=== PATIENT | female | born 1935 | race Caucasian/White ===

== ENCOUNTER → 2016-10-29 | Outpatient (CLI) | payer MEDICARE, OTHER ==
[2016-10-29 16:40] LABS: CHLORIDE,CL 103 mmol/L (98-110); SODIUM,NA 137 mmol/L (136-146)
== END ==
LOC: MW.CHNEURO 15:34
PROVIDERS: ATTEND Psychiatry & Neurology Neuromuscular Medicine
DX: G95.9 Disease of spinal cord, unspecified (principal)
CPT/HCPCS: 36415; 80053; 82525; 82607; 85025; 99204

== ENCOUNTER → 2016-10-31 | Outpatient (CLI) | payer MEDICARE, OTHER ==
[~2016-10-31] MED LIST: Gadobutrol 7.5 mMOL/7.5 ML SDV IVPUSH STA
--- NOTE | 2016-11-01 09:47 | MR ---
EXAMINATION: MRI cervical and thoracic spine with and without contrast HISTORY: Disease of the spinal cord COMPARISON: CT dated 04/27/2016 TECHNIQUE: Multiplanar and multisequence images obtained of the cervical and thoracic spine before a nd following the administration of 5 mL of Gadavist. FINDINGS: Cervical spine: There is mild reversal of the normal cervical lordosis centered at C4-C5. No suspic ious bone marrow signal changes identified. The cervical spinal cord signal is normal. The visualize d intracranial compartments appear normal. C2-C3: Unremarkable. C3-C4: Tiny diffuse pseudobulge secondary to minimal anterolisthesis of significant spinal canal brook nosis. Moderate to severe right and mild left neural foraminal stenosis. C4-C5: Moderate diffuse disc bulge with mild spinal canal stenosis. Moderate bilateral neural forami nal stenosis. C5-C6: Moderate diffuse disc bulge with moderate spinal canal stenosis. Moderate to severe right and moderate left neural foraminal stenosis. C6-C7: Small diffuse disc bulge with mild spinal canal stenosis. Moderate bilateral neural foraminal stenosis. C7-T1: Unremarkable. Thoracic spine: There is mild thoracic kyphosis. There is a moderate compression deformity of the T8 vertebral body and the T12 vertebral body. No significant underlying edema is noted suggesting a ch ronic nature. Endplate signal changes are noted at T6-T7. No suspicious bone marrow signal identifie d. There is no abnormal enhancement. The thoracic spinal cord signal appears normal. The paravertebr al soft tissues appear normal. T1-T8: Unremarkable. T8-T9: Tiny diffuse disc bulge without significant spinal canal or neural foraminal stenosis. T9-T10: Tiny diffuse disc bulge without significant spinal canal or neural foraminal stenosis. T10-T11: Unremarkable. T11-T12: Mild spinal canal stenosis secondary to retropulsion from the prior disc compression. No si gnificant neural foraminal stenosis. T12-L1: Moderate diffuse disc bulge with [id number] spinal canal stenosis and mild mild right neural foraminal stenosis. IMPRESSION: 1. Multilevel degenerative changes and disc disease noted within the cervical and thoracic spine wit h individual details above. 2. Moderate chronic wedge compression deformities at T8 and T12. 3. No abnormal bone marrow or spinal cord signal.
== END ==
LOC: MW.MRI 08:10
PROVIDERS: ATTEND Psychiatry & Neurology Neuromuscular Medicine
DX: G95.9 Disease of spinal cord, unspecified (principal); M50.30 Other cervical disc degeneration, unspecified cervical region; M43.8X4 Other specified deforming dorsopathies, thoracic region
CPT/HCPCS: 72156; 72157; A9585

== ENCOUNTER → 2016-11-07 | Outpatient (CLI) | payer MEDICARE, OTHER | LOC: MW.CHNEURO 11:17 | PROVIDERS: ATTEND Psychiatry & Neurology Neuromuscular Medicine | DX: G12.21 Amyotrophic lateral sclerosis (principal) | CPT/HCPCS: 36415; 70553; 82164; 83519; 83520; 85652; 86038; 86256; 86618; 99214 ==

== ENCOUNTER 2016-11-09 13:21 | Observation (INO) | payer MEDICARE, OTHER ==
--- NOTE | 2016-11-09 13:42 | EDM.PDOC ---
ED HPI Trauma - General Chief Complaint: Lower Extremity Injury/Pain Stated Complaint: PAIN FROM FALL Time Seen by Provider: 11/09/16 13:41 Source: Reports: Patient History Limitations: Reports: No limitations - History of Present Illness INITIAL COMMENTS - FREE TEXT/NARRATIVE: History of present illness: [81-year-old female with known gait issues secondary to chronic underlying neurological problem. Patient might possibly have ALS but this is indeterminate it is still being worked up but it is known to have caused a gait issue with a bit of foot drag subsequently causing patient to trip and fall yesterday. Patient has had increasing pain in left groin with inability to fully move the leg as well as before as well as not tolerating any weightbearing without some level of exquisite pain. Patient acknowledges she has limited all activity to going to the bathroom and getting up for the day and going to bed.] Review of systems: As per history of present illness and below otherwise all systems reviewed and negative. Past medical history: As per history of present illness and as reviewed below otherwise noncontributory. Surgical history: As per history of present illness and as reviewed below otherwise noncontributory. Social history: No reported history of drug or alcohol abuse. Family history: As per history of present illness and as reviewed below otherwise noncontributory. Physical exam: HEENT: Atraumatic, normocephalic, pupils reactive, negative for conjunctival pallor or scleral icterus, mucous membranes moist, throat clear, neck supple, nontender, trachea midline. Lungs: Clear to auscultation, breath sounds equal bilaterally, chest nontender. Heart: S1S2, regular, negative for clicks, rubs, or JVD. Abdomen: Soft, nondistended, nontender. Negative for masses or hepatosplenomegaly. Negative for costovertebral tenderness. Pelvis: Stable nontender. Genitourinary: Deferred. Rectal: Deferred. Extremities: Atraumatic, negative for cords or calf pain. Neurovascular unremarkable. Neuro: Awake, alert, oriented. Cranial nerves II through XII unremarkable. Cerebellum unremarkable. Motor and sensory unremarkable throughout. Exam nonfocal. X-rays show a left ischial ramus fracture Diagnostics: [X-ray of right hip pelvis and sacrum] Therapeutics: [IV fluids were] Impression: [Left ischial ramus fracture] Plan: [Admit for pain management and physical therapy to Dr. Rankin Definitive disposition and diagnosis as appropriate pending reevaluation and review of above. Allergies/ADRs: Allergies Penicillins Allergy (Verified 11/09/16 13:26) Hives Home Medications: Ambulatory Orders Lisinopril [Lisinopril] 1 tab PO DAILY 04/27/16 [Confirmed 11/09/16] clonazePAM [Clonazepam] 1 tab PO DAILY 04/27/16 [Confirmed 11/09/16] rOPINIRole [Requip] 1 mg PO 11/09/16 Past Medical History HEENT History: Reports: Allergic rhinitis Cardiovascular History: Reports: Hypertension Respiratory History: Reports: None Gastrointestinal History: Reports: None Genitourinary History: Reports: None [employer] History: Reports: Musculoskeletal History: Reports: Arthritis, Osteoporosis Neurological History: Reports: None Psychiatric History: Reports: None Endocrine/Metabolic History: Reports: None Hematologic History: Reports: None Immunologic History: Reports: None Oncologic (Cancer) History: Reports: None Dermatologic History: Reports: None - Infectious Disease History Infectious Disease History: Reports: Chicken pox, Measles, Mumps - Past Surgical History Head Surgeries/Procedures: Reports: None HEENT Surgical History: Reports: Cataract surgery Musculoskeletal Surgical History: Reports: None Social & Family History - Family History Family Medical History: Noncontributory - Tobacco Use Smoking Status *Q: Never Smoker Second Hand Smoke Exposure: No - Caffeine Use Caffeine Use: Reports: Coffee - Recreational Drug Use Recreational Drug Use: No Review of Systems - Review of Systems Review Of Systems: See Below (History of present illness) Trauma Exam - Physical Exam Exam: See Below (See history of present illness) Course - Vital Signs Last Recorded V/S: Last Vital Signs Temp 36.6 C 11/09/16 13:24 Pulse 100 11/09/16 13:24 Resp 16 11/09/16 13:24 BP 170/116 H 11/09/16 13:24 Pulse Ox 96 11/09/16 13:24 - Orders/Labs/Meds Orders: Active Orders 24 hr Category Date Time Status Femur Min 2V Lt [CR] Stat Exams 11/09/16 13:42 Ordered Pelvis 1V or 2V [CR] Stat Exams 11/09/16 13:42 Ordered Sacrum Coccyx Min 2V [CR] Stat Exams 11/09/16 13:42 Ordered Sodium Chloride 0.9% [Normal Saline] 1,000 ml Med 11/09/16 13:58 Ordered IV STAT Medication Orders Sodium Chloride (Normal Saline) 1,000 mls @ 200 mls/hr IV STAT ONE Stop: 11/09/16 18:57 Last Admin: 11/09/16 14:41 Dose: 200 mls/hr Meds: Medications Generic Name Dose Route Start Last Admin Trade Name Freq PRN Reason Stop Dose Admin Sodium Chloride 1,000 mls @ 200 mls/hr 11/09/16 13:58 11/09/16 14:41 Normal Saline IV 11/09/16 18:57 200 mls/hr STAT ONE Administration Discontinued Medications Generic Name Dose Route Start Last Admin Trade Name Freq PRN Reason Stop Dose Admin Ketorolac Tromethamine 30 mg 11/09/16 13:59 11/09/16 14:42 Toradol IVPUSH 11/09/16 14:00 30 mg ONETIME ONE Administration Departure - Departure Time of Disposition: 15:27 Disposition: Admitted As Inpatient 68 Condition: good Clinical Impression: Fracture of pelvis Forms: ED Department Discharge - My Orders Last 24 Hours: My Active Orders 11/09/16 13:42 Femur Min 2V Lt [CR] Stat Pelvis 1V or 2V [CR] Stat Sacrum Coccyx Min 2V [CR] Stat 11/09/16 13:58 Sodium Chloride 0.9% [Normal Saline] 1,000 ml IV STAT - Assessment/Plan Last 24 Hours: My Active Orders 11/09/16 13:42 Femur Min 2V Lt [CR] Stat Pelvis 1V or 2V [CR] Stat Sacrum Coccyx Min 2V [CR] Stat 11/09/16 13:58 Sodium Chloride 0.9% [Normal Saline] 1,000 ml IV STAT
[2016-11-09] MEDS ORDERED: Sodium Chloride 0.9% 1,000 ML IV ONE (13:58)
[2016-11-09] MEDS ORDERED: Ketorolac 30 MG/ML SDV IVPUSH ONE (13:59)
[2016-11-09] MEDS ORDERED: Sodium Chloride 0.9% 10 ML Syringe FLUSH PRN (16:02)
[2016-11-09] MEDS ORDERED: Bisacodyl 5 MG Tab PO PRN (16:02)
[2016-11-09] MEDS ORDERED: Acetaminophen 325 MG Tab PO PRN (16:02)
[2016-11-09] MEDS ORDERED: Ondansetron 4 MG Tab.DIS PO PRN (16:02)
[2016-11-09] MEDS ORDERED: Temazepam 15 MG Cap PO PRN (16:02)
[2016-11-09] MEDS ORDERED: Sodium Chloride 0.9% 2.5 ML Syringe FLUSH PRN (16:02)
[2016-11-09] MEDS ORDERED: rOPINIRole 1 MG Tab PO PRN (16:21)
[2016-11-09] MEDS ORDERED: cloNIDine 0.1 MG Tab PO ONE (16:22)
[2016-11-09] MEDS: Docusate Sodium 100 MG Cap PO SCH ×2 (16:53→20:57)
[2016-11-09] MEDS: Hydrochlorothiazide 12.5 MG Cap PO SCH (16:53)
--- NOTE | 2016-11-09 19:28 | PCM.HP ---
H&P History of Present Illness - General Date of Service: 11/09/16 Admit Problem/Dx: Admission Diagnosis/Problem Admission Diagnosis/Problem Fracture of bone Source of Information: Patient, Family, Provider - History of Present Illness Initial Comments - Free Text/Narative: This woman presents to the emergency department today because of left groin pain. She fell several days ago. She's had increasing pain since that time. She was seen in the emergency department and diagnosed with a left ischial ramus fracture. Observation the hospital for pain control was recommended. She denies current constipation. No current urinary complaints. She denies other significant injury. There was no loss of consciousness at the time of the fall which occurred on Friday. She has been seeing Dr. Bravo for a disorder thought to be a chronic neuromuscular degenerative disorder another MRI is scheduled on Friday. She has been ambulating with a walker at home since the fall. Left Groin Pain Score (Numeric/FACES): 1 - Related Data Allergies/Adverse Reactions: Allergies Allergy/AdvReac Type Severity Reaction Status Date / Time Penicillins Allergy Hives Verified 11/09/16 13:26 Home Medications: Home Meds Lisinopril [Lisinopril] 10 mg PO DAILY 04/27/16 [History] clonazePAM [Clonazepam] 0.5 mg PO DAILY 04/27/16 [History] Acetaminophen/Codeine [Tylenol with Codeine No.3 300MG/30MG] 1 tab PO BEDTIME PRN 11/09/16 [History] rOPINIRole [Requip] 1 mg PO BEDTIME PRN 11/09/16 [History] Past Medical History HEENT History: Reports: Allergic rhinitis Cardiovascular History: Reports: Hypertension. Denies: Afib, CAD, Heart Failure Respiratory History: Reports: None. Denies: Asthma, COPD, Cystic Fibrosis, Interstitial lung disease Gastrointestinal History: Reports: None. Denies: Cirrhosis Genitourinary History: Reports: None. Denies: Chronic renal insuffiency [employer] History: Reports: Musculoskeletal History: Reports: Arthritis, Osteoporosis Neurological History: Reports: Head trauma, Other (see below) (Currently under evaluation by neurology for appears to be some type of chronic neurodegenerative disorder.) Psychiatric History: Reports: None. Denies: Alzheimers disease, Dementia, Hallucinations Endocrine/Metabolic History: Reports: None. Denies: [place]'s disease, Diabetes , type I, Diabetes, type II Hematologic History: Reports: None Immunologic History: Reports: None Oncologic (Cancer) History: Reports: None Dermatologic History: Reports: None - Infectious Disease History Infectious Disease History: Reports: Chicken pox, Measles, Mumps - Past Surgical History Head Surgeries/Procedures: Reports: None HEENT Surgical History: Reports: Cataract surgery GI Surgical History: Reports: Appendectomy Musculoskeletal Surgical History: Reports: None Social & Family History - Family History Family Medical History: Noncontributory - Tobacco Use Smoking Status *Q: Never Smoker Second Hand Smoke Exposure: No - Tobacco Core Measures Tobacco Use/Smoking Within Last 30 Days: No - Caffeine Use Caffeine Use: Reports: Coffee - Alcohol Use Alcohol Use Comment: She denies frequent alcohol use. - Recreational Drug Use Recreational Drug Use: No H&P Review of Systems - Review of Systems: Review Of Systems: See Below General: Reports: weakness. Denies: fever, chills HEENT: Denies: hearing changes Pulmonary: Denies: Shortness of Breath, Wheezing, Cough, Sputum Cardiovascular: Denies: chest pain Gastrointestinal: Denies: Abdominal pain, Black stool, Bloody stool, Diarrhea, Difficulty swallowing, Hematemesis, Hematochezia Genitourinary: Denies: dysuria, frequency, burning, pain, hematuria Psychiatric: Denies: confusion, agitation Review of Systems Comment:: He has chronic weakness. She has gait instability. She has trouble with balance. She's been walking with a walker. Exam - Exam Exam: See Below - Vital Signs Vital Signs: Last Vital Signs Temp 99.2 F 11/09/16 16:02 Pulse 86 11/09/16 16:02 Resp 16 11/09/16 16:02 BP 132/69 11/09/16 18:27 Pulse Ox 98 11/09/16 16:02 Weight: 58.06 kg - Exam General: alert, oriented HEENT: EOMI, Mucosa moist & pink Neck: supple, trachea midline Lungs: Clear to auscultation, Normal respiratory effort Cardiovascular: regular rate, regular rhythm. No: systolic murmur, diastolic murmur Abdomen: soft, other (Patient notes pain and tenderness over the left inguinal region medially.). No: tenderness Rectal (Female) Exam: Deferred Extremities: No: cyanosis, edema Neurological: normal speech Neuro Extensive - Mental Status: normal mood/affect Psychiatric: alert, normal affect, normal mood (Return neuromuscular exam as per Dr. Bravo recent clinic notes.). No: agitated *Q Meaningful Use (ADM) - VTE *Q VTE Criteria *Q: - Stroke *Q Stroke Criteria *Q: - AMI *Q AMI Criteria *Q: - Problem List (1) Muscular weakness SNOMED Code(s): 20406043 ICD Code: M62.81 - MUSCLE WEAKNESS (GENERALIZED) Status: Acute Current Visit: Yes (2) Fracture of pelvis SNOMED Code(s): 37602179 ICD Code: S32.9XXA - FRACTURE OF UNSP PARTS OF LUMBOSACRAL SPINE AND PELVIS, INIT Status: Acute Current Visit: Yes Problem List Initiated/Reviewed/Updated: Yes Orders Last 24hrs: Active Orders 24 hr Category Date Time Status Antiembolic Devices [RC] PER UNIT ROUTINE Care 11/09/16 16:04 Active Communication Order [RC] STAT Care 11/09/16 16:06 Active Oxygen Therapy [RC] PRN Care 11/09/16 16:02 Active VTE/DVT Education [RC] PER UNIT ROUTINE Care 11/09/16 16:02 Active Vital Signs [RC] Q4H Care 11/09/16 16:02 Active PT Evaluation and Treatment [CONS] Routine Cons 11/09/16 16:02 Active Regular Diet [DIET] Diet 11/09/16 Dinner Active BASIC METABOLIC PANEL,BMP [CHEM] AM Lab 11/10/16 05:11 Ordered CBC WITH AUTO DIFF [HEME] AM Lab 11/10/16 05:11 Ordered MAGNESIUM [CHEM] AM Lab 11/10/16 05:11 Ordered Acetaminophen [Tylenol] Med 11/09/16 16:02 Active 650 mg PO Q4H PRN Acetaminophen/HYDROcodone [[place] 325-5 MG] Med 11/09/16 16:07 Active 1 tab PO Q3H PRN Bisacodyl [Dulcolax] Med 11/09/16 16:02 Active 5 mg PO DAILY PRN ClonazePAM [KlonoPIN] Med 11/10/16 09:00 Active 0.5 mg PO DAILY Docusate Sodium [Colace] Med 11/09/16 16:15 Active 100 mg PO BID Hydrochlorothiazide Med 11/09/16 16:30 Active 12.5 mg PO DAILY Lisinopril [Prinivil] Med 11/10/16 09:00 Active 10 mg PO DAILY Ondansetron [Zofran ODT] Med 11/09/16 16:02 Active 4 mg PO Q4H PRN Sodium Chloride 0.9% [Saline Flush] Med 11/09/16 16:02 Active 10 ml FLUSH ASDIRECTED PRN Sodium Chloride 0.9% [Saline Flush] Med 11/09/16 16:02 Active 2.5 ml FLUSH ASDIRECTED PRN Temazepam [Restoril] Med 11/09/16 16:02 Active 15 mg PO BEDTIME PRN rOPINIRole [Requip] Med 11/09/16 16:21 Active 1 mg PO BEDTIME PRN Saline Lock Insert [OM.PC] Routine Oth 11/09/16 16:02 Ordered Sequential Compression Device [OM.PC] Per Unit Routine Oth 11/09/16 16:03 Ordered Resuscitation Status Routine Resus Stat 11/09/16 16:02 Ordered Medication Orders Acetaminophen (Tylenol) 650 mg PO Q4H PRN PRN Reason: Pain (Mild 1-3)/fever Hydrocodone Bitart/Acetaminophen ([place] 325-5 Mg) 1 tab PO Q3H PRN PRN Reason: Pain Bisacodyl (Dulcolax) 5 mg PO DAILY PRN PRN Reason: Constipation Clonazepam (Klonopin) 0.5 mg PO DAILY [facility] Docusate Sodium (Colace) 100 mg PO BID [facility] Last Admin: 11/09/16 16:53 Dose: 100 mg Hydrochlorothiazide (Hydrochlorothiazide) 12.5 mg PO DAILY [facility] Last Admin: 11/09/16 16:53 Dose: 12.5 mg Lisinopril (Prinivil) 10 mg PO DAILY [facility] Ondansetron HCl (Zofran Odt) 4 mg PO Q4H PRN PRN Reason: nausea, able to take PO Ropinirole HCl (Requip) 1 mg PO BEDTIME PRN PRN Reason: Restless Leg Syndrome Sodium Chloride (Saline Flush) 10 ml FLUSH ASDIRECTED PRN PRN Reason: Keep Vein Open Sodium Chloride (Saline Flush) 2.5 ml FLUSH ASDIRECTED PRN PRN Reason: Keep Vein Open Temazepam (Restoril) 15 mg PO BEDTIME PRN PRN Reason: Sleep Assessment/Plan Comment:: Observation. Physical therapy consult. Possible discharge Friday. Will attempt to get better pain control. Stool softeners scheduled. We discussed importance of avoiding constipation.
[2016-11-09] MEDS: Acetaminophen/HYDROcodone 325-5 MG Tab PO PRN (22:19)
[2016-11-10] MEDS: Acetaminophen/HYDROcodone 325-5 MG Tab PO PRN ×5 (03:51→22:31)
[2016-11-10 06:27] LABS: CHLORIDE,CL 107 mmol/L (98-110); SODIUM,NA 137 mmol/L (136-146)
[2016-11-10] MEDS: Hydrochlorothiazide 12.5 MG Cap PO SCH (08:01)
[2016-11-10] MEDS: Docusate Sodium 100 MG Cap PO SCH ×2 (08:01→20:38)
[2016-11-10] MEDS: Lisinopril 10 MG Tab PO SCH (08:02)
[2016-11-10] MEDS ORDERED: ClonazePAM 0.5 MG Tab PO SCH ×2 (09:00→21:00)
--- NOTE | 2016-11-10 11:08 | PCM.PN ---
- General Info Date of Service: 11/10/16 Subjective Update: She is a little breakfast. She was able to ambulate with a walker she had a bowel movement this morning. Functional Status: Reports: pain controlled - Patient Data Vitals - most recent: Last Vital Signs Temp 97.8 F 11/10/16 08:04 Pulse 68 11/10/16 08:04 Resp 18 11/10/16 08:04 BP 152/71 H 11/10/16 08:04 Pulse Ox 96 11/10/16 08:04 Weight - most recent: 58.06 kg I&O - last 24 hours: Intake & Output 11/09/16 11/10/16 11/10/16 22:59 06:59 14:59 Intake Total 1000 1200 Output Total 1950 Balance 1000 -750 Lab Results last 24 hrs: Laboratory Results - last 24 hr 11/10/16 11/10/16 Range/Units 06:00 06:00 WBC 5.28 (4.0-11.0) K/uL RBC 3.39 L (4.30-5.90) M/uL Hgb 11.1 L (12.0-16.0) g/dL Hct 33.1 L (36.0-46.0) % MCV 97.6 (80.0-98.0) fL MCH 32.7 H (27.0-32.0) pg MCHC 33.5 (31.0-37.0) g/dL RDW Std Deviation 47.3 (28.0-62.0) fl RDW Coeff of Hany 13 (11.0-15.0) % Plt Count 194 (150-400) K/uL MPV 10.40 (7.40-12.00) fL Neut % (Auto) 57.9 (48.0-80.0) % Lymph % (Auto) 26.3 (16.0-40.0) % [place] % (Auto) 12.7 (0.0-15.0) % Eos % (Auto) 2.7 (0.0-7.0) % Baso % (Auto) 0.4 (0.0-1.5) % Neut # (Auto) 3.1 (1.4-5.7) K/uL Lymph # (Auto) 1.4 (0.6-2.4) K/uL [place] # (Auto) 0.7 (0.0-0.8) K/uL Eos # (Auto) 0.1 (0.0-0.7) K/uL Baso # (Auto) 0.0 (0.0-0.1) K/uL Nucleated RBC % 0.0 /100WBC Nucleated RBCs # 0 K/uL Sodium 137 (136-146) mmol/L Potassium 3.7 (3.5-5.1) mmol/L Chloride 107 (98-110) mmol/L Carbon Dioxide 23 (21-31) mmol/L BUN 11 (6.0-23.0) mg/dL Creatinine 0.7 (0.6-1.5) mg/dL Est Cr Clr Drug Dosing 46.81 mL/min Estimated GFR (MDRD) > 60.0 ml/min Glucose 88 (60-110) mg/dL Calcium 8.8 (8.8-10.8) mg/dL Magnesium 1.8 (1.5-2.3) mEq/L Med Orders - Current: Current Medications Acetaminophen (Tylenol) 650 mg PO Q4H PRN PRN Reason: Pain (Mild 1-3)/fever Hydrocodone Bitart/Acetaminophen ([place] 325-5 Mg) 1 tab PO Q3H PRN PRN Reason: Pain Last Admin: 11/10/16 08:00 Dose: 1 tab Bisacodyl (Dulcolax) 5 mg PO DAILY PRN PRN Reason: Constipation Clonazepam (Klonopin) 0.5 mg PO BEDTIME [facility] Docusate Sodium (Colace) 100 mg PO BID [facility] Last Admin: 11/10/16 08:01 Dose: 100 mg Hydrochlorothiazide (Hydrochlorothiazide) 12.5 mg PO DAILY [facility] Last Admin: 11/10/16 08:01 Dose: 12.5 mg Lisinopril (Prinivil) 10 mg PO DAILY [facility] Last Admin: 11/10/16 08:02 Dose: 10 mg Ondansetron HCl (Zofran Odt) 4 mg PO Q4H PRN PRN Reason: nausea, able to take PO Ropinirole HCl (Requip) 1 mg PO BEDTIME PRN PRN Reason: Restless Leg Syndrome Last Admin: 11/09/16 22:19 Dose: 1 mg Sodium Chloride (Saline Flush) 10 ml FLUSH ASDIRECTED PRN PRN Reason: Keep Vein Open Sodium Chloride (Saline Flush) 2.5 ml FLUSH ASDIRECTED PRN PRN Reason: Keep Vein Open Temazepam (Restoril) 15 mg PO BEDTIME PRN PRN Reason: Sleep Discontinued Medications Clonazepam (Klonopin) 0.5 mg PO DAILY [facility] Last Admin: 11/10/16 08:02 Dose: 0.5 mg Clonidine HCl (Catapres) 0.2 mg PO ONETIME ONE Stop: 11/09/16 16:23 Last Admin: 11/09/16 16:54 Dose: 0.2 mg Sodium Chloride (Normal Saline) 1,000 mls @ 200 mls/hr IV STAT ONE Stop: 11/09/16 18:57 Last Admin: 11/09/16 14:41 Dose: 200 mls/hr Ketorolac Tromethamine (Toradol) 30 mg IVPUSH ONETIME ONE Stop: 11/09/16 14:00 Last Admin: 11/09/16 14:42 Dose: 30 mg - Exam General: alert, oriented, cooperative Neck: supple, trachea midline Lungs: Clear to auscultation, Normal respiratory effort Cardiovascular: Regular Rate, Regular Rhythm Abdomen: soft, no tenderness Psy/Mental Status: alert, normal affect - Problem List & Annotations (1) Muscular weakness SNOMED Code(s): 47376546 Code(s): M62.81 - MUSCLE WEAKNESS (GENERALIZED) Status: Acute Current Visit: Yes (2) Fracture of pelvis SNOMED Code(s): 94753185 Code(s): S32.9XXA - FRACTURE OF UNSP PARTS OF LUMBOSACRAL SPINE AND PELVIS, INIT Status: Acute Current Visit: Yes - Problem List Review Problem List Initiated/Reviewed/Updated: Yes - My Orders Last 24 Hours: My Active Orders 11/09/16 16:02 Oxygen Therapy [RC] PRN Vital Signs [RC] Q4H PT Evaluation and Treatment [CONS] Routine Acetaminophen [Tylenol] 650 mg PO Q4H PRN Bisacodyl [Dulcolax] 5 mg PO DAILY PRN Ondansetron [Zofran ODT] 4 mg PO Q4H PRN Sodium Chloride 0.9% [Saline Flush] 10 ml FLUSH ASDIRECTED PRN Sodium Chloride 0.9% [Saline Flush] 2.5 ml FLUSH ASDIRECTED PRN Temazepam [Restoril] 15 mg PO BEDTIME PRN Saline Lock Insert [OM.PC] Routine Resuscitation Status Routine 11/09/16 16:03 Sequential Compression Device [OM.PC] Per Unit Routine 11/09/16 16:04 Antiembolic Devices [RC] PER UNIT ROUTINE 11/09/16 16:06 Communication Order [RC] STAT 11/09/16 16:07 Acetaminophen/HYDROcodone [[place] 325-5 MG] 1 tab PO Q3H PRN 11/09/16 16:15 Docusate Sodium [Colace] 100 mg PO BID 11/09/16 16:21 rOPINIRole [Requip] 1 mg PO BEDTIME PRN 11/09/16 16:30 Hydrochlorothiazide 12.5 mg PO DAILY 11/09/16 Dinner Regular Diet [DIET] 11/10/16 09:00 Lisinopril [Prinivil] 10 mg PO DAILY 11/10/16 21:00 ClonazePAM [KlonoPIN] 0.5 mg PO BEDTIME - Plan Plan:: Observation. Physical therapy consult. Possible discharge Friday. Will attempt to get better pain control. Stool softeners scheduled. We discussed importance of avoiding constipation.
[2016-11-10] MEDS: Ketorolac 30 MG/ML SDV IVPUSH PRN (18:21)
[2016-11-11] MEDS: Ketorolac 30 MG/ML SDV IVPUSH PRN (06:41)
[2016-11-11] MEDS: Lisinopril 10 MG Tab PO SCH (08:59)
[2016-11-11] MEDS: Hydrochlorothiazide 12.5 MG Cap PO SCH (08:59)
[2016-11-11] MEDS: Docusate Sodium 100 MG Cap PO SCH (08:59)
--- NOTE | 2016-11-11 10:15 | CR ---
EXAM DATE: 11/09/16 PATIENT'S AGE: 81 Patient: MARIA FERNANDA MARSHALL Facility: [place], [place] Site . Site : 1935 Study: XRay Pelvis [id number]/22/2017 2:27:53 PM Ordering Physician: Doctor Mc Final Report: HISTORY: Pain after falling injury. Findings: Single AP view of the pelvis is provided. There is an apparent nondisplaced or minimally displaced fracture of the left ischial ramus. There is a possible superior ramus fracture as well but this is not definite. There is sclerosis seen to the right of the symphysis pubis possibly related to arthritic change or old healed injury. There is no evidence for fracture elsewhere. No proximal femoral fracture is noted. Mild osteoarthritic change of both hip joints is noted. Impression: Nondisplaced or minimally displaced left ischial ramus fracture. Dictated by Rubens Tineo MD @ Nov 09 2016 2:49PM (Electronic Signature) Report Signed by Proxy and Original Signed Document filed in the Medical Record. [facility]
--- NOTE | 2016-11-11 10:16 | CR ---
EXAM DATE: 11/09/16 PATIENT'S AGE: 81 Patient: MARIA FERNANDA MARSHALL Facility: [place], [place] Site . Site : 1935 Study: XRay Spine [id number] sac/coccyx-11/09/2016 2:29:02 PM Ordering Physician: Doctor Mc Final Report: HISTORY: Pain after injury. Findings: Four views of the sacral region or provided. Again noted is a nondisplaced or minimally displaced fracture of the left ischial ramus. No additional definite acute fracture is identified. Sclerosis is present to the right of the symphysis pubis which could be related to arthritic change or old healed injury. The sacroiliac joints are unremarkable. Multiple phleboliths are noted. Dictated by Rubens Tineo MD @ Nov 09 2016 2:54PM (Electronic Signature) Report Signed by Proxy and Original Signed Document filed in the Medical Record. [facility]
--- NOTE | 2016-11-11 10:16 | CR ---
EXAM DATE: 11/09/16 PATIENT'S AGE: 81 Patient: MARIA FERNANDA MARSHALL Facility: [place], [place] Site . Site : [id number] Study: XRay Extremity Left [id number] femur-11/09/2016 2:28:14 PM Ordering Physician: Doctor Mc Final Report: HISTORY: Pain after falling injury. FINDINGS There is an apparent nondisplaced or minimally displaced fracture of the left ischial ramus. No femoral fracture is identified. Mild osteoarthritic change of the left hip joint is noted. Dictated by Rubens Tineo MD @ Nov 09 2016 2:52PM (Electronic Signature) Report Signed by Proxy and Original Signed Document filed in the Medical Record. MTDD
--- NOTE | 2016-11-11 11:38 | PCM.DCSUM1 ---
Discharge Summary - Hospital Course Brief History: This 81 year old female with pmh of HTN, and currently being worked up for a neurologic disorder, presents to the emergency department 11/09 because of left groin pain. She fell several days ago. She's had increasing pain since that time. She was seen in the emergency department and diagnosed with a left ischial ramus fracture. Observation the hospital for pain control was recommended. She denies current constipation. No current urinary complaints. She denies other significant injury. There was no loss of consciousness at the time of the fall which occurred on Friday. She has been seeing Dr. Bravo for a disorder thought to be a chronic neuromuscular degenerative disorder another MRI is scheduled on Friday. She has been ambulating with a walker at home since the fall. - Discharge Data Discharge Date: 11/11/16 Discharge Disposition: Home, W Home Health Agency 06 Condition: Good - Patient Summary/Data Consults: Consultations 11/09/16 16:02 PT Evaluation and Treatment [CONS] Routine - Patient Instructions Diet: Usual Diet as Tolerated, Regular Diet as Tolerated Activity: As Tolerated Driving: Do Not Drive Showering/Bathing: May Shower Notify Provider of: Fever, Increased Pain, Swelling and Redness, Drainage, Nausea and/or Vomiting Other/Special Instructions: Home Health with Physical Therapy. Hold on PT at [facility] for now, further release to be completed by PCP, Dr See. - Discharge Plan Prescriptions/Med Rec: Acetaminophen/HYDROcodone [[place] 325-5 MG] 1 - 2 tab PO Q4H PRN #30 tablet PRN Reason: Pain Hydrochlorothiazide 12.5 mg PO DAILY #30 cap Temazepam [Restoril] 15 mg PO BEDTIME PRN #10 cap PRN Reason: Sleep Home Medications: Home Meds Lisinopril 10 mg PO DAILY 04/27/16 [History] clonazePAM [Clonazepam] 0.5 mg PO DAILY PRN 04/27/16 [History] rOPINIRole [Requip] 1 mg PO BEDTIME PRN 11/09/16 [History] Acetaminophen/HYDROcodone [[place] 325-5 MG] 1 - 2 tab PO Q4H PRN #30 tablet 11/11 [Rx] Docusate Sodium [Colace] 100 mg PO BID cap 11/11/16 [Rx] Hydrochlorothiazide 12.5 mg PO DAILY #30 cap 11/11/16 [Rx] Temazepam [Restoril] 15 mg PO BEDTIME PRN #10 cap 11/11/16 [Rx] Forms: ED Department Discharge Referrals: Rene See MD [Primary Care Provider] - (Has follow up on November [address] See) - Discharge Summary/Plan Comment DC Time >30 min.: No Discharge Summary/Plan Comment: Discharge Diagnoses left ischial ramus fracture HTN 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 She has been up ambulating well with FWW. She was evaluated by PT this am and ambulated in the room. She feels like the pain is better controlled, still painful at times and especially with movement. She is safe to be discharged home, is at home with her. She will be discharge home with Home Health. She is in need of penitentiary care to assess effectiveness of pain medication and monitor HTN with addition of new medications. Physical therapy and Occupational therapy will ordered to evaluate and treat due to left ischial ramus fracture and OT to assist with ADLs. She is currently unable to ambulate without the assistance of a FWW and pain. She is limited to ambulating short household distances due to pain and is unable to drive. Dr. Rene See, PCP, will follow plan of care upon discharge. I will discharge her home today with HCTZ 12.5 mg daily for HTN , BP has been elevated during stay. Monitor closely, maybe related to pain. [place] 1-2 tabs by mouth every 4-6 hours PRN pain, #30 tabs. I will also send her home with Restoril 15 mg at bedtime PRN for sleep, she reports since she feel she is unable to sleep due to being so uncomfortable. Last evening she was given Restoril and she slept really well and feels good this morning. She will be discharged today. She has follow up arranged with PCP, Dr. See November 19. She is to return to ED or clinic if concerns should arise. - General Info Date of Service: 11/11/16 Admission Dx/Problem (Free Text: Admission Diagnosis/Problem Admission Diagnosis/Problem Fracture of bone Subjective Update: Doing well today. Pain is well controlled with [place]. She finally slept well. Denies any chest pain or SOB. She ambulated ok with PT and FWW. at bedside. Eager for discharge today. She will be going to MRI for Dr Bravo after discharge, requesting medication for claustrophobia. Functional Status: Reports: pain controlled, tolerating diet, ambulating, urinating - Review of Systems General: Reports: No Symptoms. Denies: Fever HEENT: Reports: no symptoms. Denies: sinus congestion, sore throat Pulmonary: Reports: no symptoms. Denies: shortness of breath Cardiovascular: Reports: No Symptoms. Denies: Chest Pain, Edema Gastrointestinal: Reports: No symptoms. Denies: Abdominal pain, Constipation, Nausea, Vomiting Genitourinary: Reports: no symptoms. Denies: dysuria, frequency, burning, incontinence Musculoskeletal: Reports: other (pelvic pain with movement, but better controlled today.) Neurological: Reports: No Symptoms Psychiatric: Reports: no symptoms - Patient Data Vitals - Most Recent: Last Vital Signs Temp 97.5 F 11/11/16 11:00 Pulse 78 11/11/16 11:00 Resp 20 11/11/16 11:00 BP 173/77 H 11/11/16 11:00 Pulse Ox 95 11/11/16 11:00 Weight - Most Recent: 58.06 kg I&O - Last 24 hours: Intake & Output 11/10/16 11/11/16 11/11/16 22:59 06:59 14:59 Intake Total 740 750 Output Total 1600 700 Balance -860 50 Med Orders - Current: Current Medications Acetaminophen (Tylenol) 650 mg PO Q4H PRN PRN Reason: Pain (Mild 1-3)/fever Hydrocodone Bitart/Acetaminophen ([place] 325-5 Mg) 1 tab PO Q3H PRN PRN Reason: Pain Last Admin: 11/10/16 22:31 Dose: 1 tab Bisacodyl (Dulcolax) 5 mg PO DAILY PRN PRN Reason: Constipation Clonazepam (Klonopin) 0.5 mg PO BEDTIME [place] Last Admin: 11/10/16 20:37 Dose: 0.5 mg Diazepam (Valium) 2 mg PO ONETIME ONE Stop: 11/11/16 15:31 Docusate Sodium (Colace) 100 mg PO BID [place] Last Admin: 11/11/16 08:59 Dose: 100 mg Hydrochlorothiazide (Hydrochlorothiazide) 12.5 mg PO DAILY [place] Last Admin: 11/11/16 08:59 Dose: 12.5 mg Ketorolac Tromethamine (Toradol) 30 mg IVPUSH Q6H PRN PRN Reason: Pain Stop: 11/15/16 18:20 Last Admin: 11/11/16 06:41 Dose: 30 mg Lisinopril (Prinivil) 10 mg PO DAILY [facility] Last Admin: 11/11/16 08:59 Dose: 10 mg Ondansetron HCl (Zofran Odt) 4 mg PO Q4H PRN PRN Reason: nausea, able to take PO Ropinirole HCl (Requip) 1 mg PO BEDTIME PRN PRN Reason: Restless Leg Syndrome Last Admin: 11/09/16 22:19 Dose: 1 mg Sodium Chloride (Saline Flush) 10 ml FLUSH ASDIRECTED PRN PRN Reason: Keep Vein Open Sodium Chloride (Saline Flush) 2.5 ml FLUSH ASDIRECTED PRN PRN Reason: Keep Vein Open Temazepam (Restoril) 15 mg PO BEDTIME PRN PRN Reason: Sleep Last Admin: 11/10/16 22:32 Dose: 15 mg Discontinued Medications Clonazepam (Klonopin) 0.5 mg PO DAILY [facility] Last Admin: 11/10/16 08:02 Dose: 0.5 mg Clonidine HCl (Catapres) 0.2 mg PO ONETIME ONE Stop: 11/09/16 16:23 Last Admin: 11/09/16 16:54 Dose: 0.2 mg Sodium Chloride (Normal Saline) 1,000 mls @ 200 mls/hr IV STAT ONE Stop: 11/09/16 18:57 Last Admin: 11/09/16 14:41 Dose: 200 mls/hr Ketorolac Tromethamine (Toradol) 30 mg IVPUSH ONETIME ONE Stop: 11/09/16 14:00 Last Admin: 11/09/16 14:42 Dose: 30 mg - Exam General: Reports: alert, oriented, cooperative Lungs: Reports: Clear to auscultation, Normal respiratory effort Cardiovascular: Reports: Regular Rate, Regular Rhythm Abdomen: Reports: bowel sounds present, soft, no tenderness, no distension Extremities: Reports: no edema, normal pulses *Q Meaningful Use (DIS) - VTE *Q VTE Criteria *Q: - Stroke *Q Stroke Criteria *Q: - AMI *Q AMI Criteria *Q:
[2016-11-11] MEDS: Acetaminophen/HYDROcodone 325-5 MG Tab PO PRN (13:06)
[2016-11-11 14:39] VITALS: BP 122/78
[2016-11-11] MEDS ORDERED: Diazepam 2 MG Tab PO ONE (15:30)
== END 2016-11-11 15:50 | disposition home health service (06) ==
LOC: MW.ED 13:21 → OBSVTOIN 15:25 → MW.MS 15:25 → INTOOBSV 15:25
PROVIDERS: ADMIT Family Medicine; ATTEND Family Medicine
DX: S32.602A Unspecified fracture of left ischium, initial encounter for closed fracture (principal); G12.21 Amyotrophic lateral sclerosis; M62.81 Muscle weakness (generalized); I10 Essential (primary) hypertension; M19.90 Unspecified osteoarthritis, unspecified site; M81.0 Age-related osteoporosis without current pathological fracture; W19.XXXA Unspecified fall, initial encounter; Z79.899 Other long term (current) drug therapy; Z88.0 Allergy status to penicillin; Z98.49 Cataract extraction status, unspecified eye; Z90.49 Acquired absence of other specified parts of digestive tract
CPT/HCPCS: 36415; 70553; 72170; 72220; 73552; 80048; 83735; 85025; 96374; 96376; 97161; 99284; A9270; G0378; J1885; J7040; 99285

== ENCOUNTER 2017-03-26 14:43 | Emergency (ER) | payer MEDICARE, OTHER ==
[2017-03-26] MEDS ORDERED: Ketorolac 60 MG/2 ML SDV IM ONE (15:02)
--- NOTE | 2017-03-26 15:24 | EDM.PDOC ---
ED HPI GENERAL MEDICAL PROBLEM - General Chief Complaint: Back Pain or Injury Stated Complaint: LOWER BACK PAIN Time Seen by Provider: 03/26/17 14:49 Source of Information: Reports: Patient History Limitations: Reports: No Limitations - History of Present Illness INITIAL COMMENTS - FREE TEXT/NARRATIVE: History of present illness: [ Patient is a frail 81-year-old female who comes in status post mechanical fall yesterday. Patient indicates that she has a history of ALS and subsequently has occasional mobility and gait issues. Patient complains of pain in her lower back as well as her pelvic region. She also indicates she has a known history of pelvic fracture and arthritis and osteopenia in her back but wanted to be certain that she hadn't refractured something.] Review of systems: As per history of present illness and below otherwise all systems reviewed and negative. Past medical history: As per history of present illness and as reviewed below otherwise noncontributory. Surgical history: As per history of present illness and as reviewed below otherwise noncontributory. Social history: No reported history of drug or alcohol abuse. Family history: As per history of present illness and as reviewed below otherwise noncontributory. Physical exam: HEENT: Atraumatic, normocephalic, pupils reactive, negative for conjunctival pallor or scleral icterus, mucous membranes moist, throat clear, neck supple, nontender, trachea midline. Lungs: Clear to auscultation, breath sounds equal bilaterally, chest nontender. Heart: S1S2, regular, negative for clicks, rubs, or JVD. Abdomen: Soft, nondistended, nontender. Negative for masses or hepatosplenomegaly. Negative for costovertebral tenderness. Pelvis: Stable nontender. Genitourinary: Deferred. Rectal: Deferred. Extremities: Atraumatic, negative for cords or calf pain. Neurovascular unremarkable. Neuro: Awake, alert, oriented. Cranial nerves II through XII unremarkable. Cerebellum unremarkable. Motor and sensory unremarkable throughout. Exam nonfocal. Global assessment is benign save obvious kyphosis and frailty. X-rays consistent with chronic degenerative changes and previous fractures. Patient declined further diagnostic testing by way of labs indicating that she did not feel that they were warranted as she didn't feel any weaker than usual and or anything different save this mechanical fall. Patient indicates that her legs do not usually work very well in the morning after full night sleep and that it takes her a while to get them to function fully secondary to her ALS. Diagnostics: [X-ray of lumbar region as well as pelvic region] Therapeutics: [Toradol] Impression: [#1 pelvic and lower back contusions #2 gait and mobility issues] Plan: [Brief run of pain medicine follow-up with PCP] Definitive disposition and diagnosis as appropriate pending reevaluation and review of above. Bilateral Lower Back Pain Score (Numeric/FACES): 8 - Related Data Allergies Allergy/AdvReac Type Severity Reaction Status Date / Time Penicillins Allergy Hives Verified 11/09/16 13:26 Home Meds: Home Meds Lisinopril 10 mg PO DAILY 04/27/16 [History] rOPINIRole [Requip] 1 mg PO BEDTIME PRN 11/09/16 [History] Docusate Sodium [Colace] 100 mg PO BID cap 11/11/16 [Rx] Temazepam [Restoril] 15 mg PO BEDTIME PRN #10 cap 11/11/16 [Rx] Acetaminophen with Codeine [Tylenol with Codeine #3 Tablet] 1 tab PO Q4H PRN 01/04 [History] Ascorbate Calcium [Vitamin C] 1 tab PO DAILY 03/26/17 [History] Lecithin 1 tab PO DAILY 03/26/17 [History] Multivitamin [Multivitamins] 1 tab PO DAILY 03/26/17 [History] Riluzole 1 tab PO BID 03/26/17 [History] Vitamin B Complex 1 tab PO DAILY 03/26/17 [History] Past Medical History HEENT History: Reports: Allergic Rhinitis Cardiovascular History: Reports: Hypertension Respiratory History: Reports: None Gastrointestinal History: Reports: None. Denies: Cirrhosis Genitourinary History: Reports: None CHANGE LEAD History: Reports: Musculoskeletal History: Reports: Arthritis, Osteoporosis Neurological History: Reports: Head Trauma, Other (See Below) Other Neuro History: ALS Psychiatric History: Reports: None Endocrine/Metabolic History: Reports: None Hematologic History: Reports: None Immunologic History: Reports: None Oncologic (Cancer) History: Reports: None Dermatologic History: Reports: None - Infectious Disease History Infectious Disease History: Reports: Chicken Pox, Measles, Mumps - Past Surgical History Head Surgeries/Procedures: Reports: None HEENT Surgical History: Reports: Cataract Surgery GI Surgical History: Reports: Appendectomy Musculoskeletal Surgical History: Reports: None Social & Family History - Family History Family Medical History: Noncontributory - Tobacco Use Smoking Status *Q: Never Smoker Second Hand Smoke Exposure: No - Caffeine Use Caffeine Use: Reports: Coffee - Recreational Drug Use Recreational Drug Use: No ED ROS GENERAL - Review of Systems Review Of Systems: See Below (The history of present illness) ED EXAM,LOWER BACK PAIN/INJURY - Physical Exam Exam: See Below (See history of present illness) Course - Vital Signs Last Recorded V/S: Last Vital Signs Temp 36.4 C 03/26/17 15:04 Pulse 86 03/26/17 15:04 Resp 18 03/26/17 15:04 BP 206/88 H 03/26/17 15:04 Pulse Ox 96 03/26/17 15:04 - Orders/Labs/Meds Meds: Medications Discontinued Medications Generic Name Dose Route Start Last Admin Trade Name Freq PRN Reason Stop Dose Admin Ketorolac Tromethamine 60 mg 03/26/17 15:02 Toradol IM 03/26/17 15:03 ONETIME ONE Departure - Departure Time of Disposition: 16:08 Disposition: Home, Self-Care 01 Condition: Good Clinical Impression: Back contusion, Fall, Muscular weakness - Discharge Information Referrals: Rene See MD [Primary Care Provider] - Forms: ED Department Discharge Additional Instructions: The following information is given to patients seen in the emergency department who are being discharged to home. This information is to outline your options for follow-up care. We provide all patients seen in our emergency department with a follow-up referral. The need for follow-up, as well as the timing and circumstances, are variable depending upon the specifics of your emergency department visit. If you don't have a primary care physician on staff, we will provide you with a referral. We always advise you to contact your personal physician following an emergency department visit to inform them of the circumstance of the visit and for follow-up with them and/or the need for any referrals to a consulting specialist. The emergency department will also refer you to a specialist when appropriate. This referral assures that you have the opportunity for follow-up care with a specialist. All of these measure are taken in an effort to provide you with optimal care, which includes your follow-up. Under all circumstances we always encourage you to contact your private physician who remains a resource for coordinating your care. When calling for follow-up care, please make the office aware that this follow-up is from your recent emergency room visit. If for any reason you are refused follow-up, please contact the [facility] Emergency Department at and asked to speak to the emergency department charge nurse. Take medication as directed Follow-up with your PCP 1-2 days Return to ED as needed as discussed
--- NOTE | 2017-03-26 15:55 | CR ---
EXAMINATION: Pelvis and lumbar spine HISTORY: Fall COMPARISON: 09/09/2016 TECHNIQUE: AP pelvis and AP and lateral views of the lumbar spine. FINDINGS: There are nearly well-healed superior and inferior pubic rami fractures on the left. The il iopectineal lines are otherwise intact. The hip joint spaces are preserved. Bone mineralization appea rs osteopenic. SI joints are symmetric. Bowel gas appears evaluation of the sacrum. Mild osteitis pub is. There is trace anterolisthesis of L3 on L4 and L4 on L5. Chronic compression deformities noted at T12 and L1. Mild marginal osteophytes. IMPRESSION: 1. No definite acute osseous abnormality. 2. Old left pubic rami fractures. 3. Old compression deformities at T12 and L1. 4. Generalized osteopenia.
[2017-03-26 16:57] VITALS: BP 230/112
== END 2017-03-26 16:50 | disposition home or self-care (01) ==
LOC: MW.ED 14:43
DX: S30.0XXA Contusion of lower back and pelvis, initial encounter (principal); R26.9 Unspecified abnormalities of gait and mobility; M62.81 Muscle weakness (generalized); I10 Essential (primary) hypertension; M19.90 Unspecified osteoarthritis, unspecified site; Z90.49 Acquired absence of other specified parts of digestive tract; Z98.890 Other specified postprocedural states; Z79.899 Other long term (current) drug therapy; Z88.0 Allergy status to penicillin; W19.XXXA Unspecified fall, initial encounter
CPT/HCPCS: 72100; 72170; 96372; 99283; J1885

== ENCOUNTER 2018-03-06 16:13 | Inpatient (IN) | payer MEDICARE, OTHER ==
[2018-03-06] MEDS ORDERED: Ibuprofen 200 MG Tab PO PRN (16:24)
[2018-03-06] MEDS: Prochlorperazine 10 MG Tab PO PRN (17:38)
[2018-03-06] MEDS: Acetaminophen/Codeine 300-30 MG Tab PO PRN (20:09)
[2018-03-06] MEDS: rOPINIRole 1 MG Tab PO SCH (22:17)
[2018-03-06] MEDS: Haloperidol Lactate 2 MG/ML Oral Soln 15 ML Bottle PO PRN (22:17)
[2018-03-06] MEDS: Docusate Sodium 100 MG Cap PO PRN (23:13)
[2018-03-06] MEDS: Temazepam 15 MG Cap PO PRN (23:13)
[2018-03-07] MEDS: Temazepam 15 MG Cap PO PRN ×2 (02:09→22:29)
[2018-03-07] MEDS: Morphine Oral Concentrate 20 MG/ML 30 ML Bottle PO PRN ×4 (02:11→15:56)
[2018-03-07] MEDS ORDERED: Multivitamin Tab PO SCH (09:00)
[2018-03-07] MEDS: Docusate Sodium 100 MG Cap PO PRN ×2 (09:02→19:41)
[2018-03-07] MEDS: Lisinopril 10 MG Tab PO SCH (09:02)
[2018-03-07] MEDS: Prochlorperazine 10 MG Tab PO PRN (17:12)
[2018-03-07] MEDS: Acetaminophen/Codeine 300-30 MG Tab PO PRN (21:36)
[2018-03-07] MEDS: rOPINIRole 1 MG Tab PO SCH (21:38)
[2018-03-08] MEDS: Temazepam 15 MG Cap PO PRN ×2 (02:25→22:10)
[2018-03-08] MEDS: Morphine Oral Concentrate 20 MG/ML 30 ML Bottle PO PRN ×3 (02:25→18:07)
[2018-03-08] MEDS: Lisinopril 10 MG Tab PO SCH (09:19)
[2018-03-08] MEDS: Docusate Sodium 100 MG Cap PO PRN ×2 (09:26→22:06)
[2018-03-08] MEDS: Prochlorperazine 10 MG Tab PO PRN (17:00)
[2018-03-08] MEDS: Polyethylene Glycol 3350 Powder 17 GM Packet PO SCH (18:07)
[2018-03-08] MEDS: Acetaminophen/Codeine 300-30 MG Tab PO PRN (22:07)
[2018-03-08] MEDS: rOPINIRole 1 MG Tab PO SCH (22:07)
[2018-03-09] MEDS: Temazepam 15 MG Cap PO PRN ×2 (02:11→22:16)
[2018-03-09] MEDS: Morphine Oral Concentrate 20 MG/ML 30 ML Bottle PO PRN ×3 (04:20→20:59)
[2018-03-09] MEDS: Lisinopril 10 MG Tab PO SCH (09:10)
[2018-03-09] MEDS: Polyethylene Glycol 3350 Powder 17 GM Packet PO SCH (09:11)
[2018-03-09] MEDS ORDERED: Bisacodyl 10 MG Supp RECTAL PRN (11:29)
[2018-03-09] MEDS ORDERED: Hyoscyamine 0.125 MG Tab.SL PO SCH (11:30)
[2018-03-09] MEDS ORDERED: Acetaminophen/Codeine 300-30 MG Tab PO PRN (11:30)
[2018-03-09] MEDS ORDERED: Ibuprofen 200 MG Tab PO SCH (11:30)
[2018-03-09] MEDS ORDERED: Morphine Oral Concentrate 20 MG/ML 30 ML Bottle PO PRN (11:30)
[2018-03-09] MEDS ORDERED: Temazepam 15 MG Cap PO PRN (11:30)
[2018-03-09] MEDS ORDERED: Prochlorperazine 10 MG Tab PO PRN (11:30)
[2018-03-09] MEDS ORDERED: rOPINIRole 1 MG Tab PO PRN (11:30)
[2018-03-09] MEDS: Haloperidol 1 MG Tab PO SCH ×3 (13:18→23:53)
[2018-03-09] MEDS ORDERED: Magnesium Hydroxide 400 MG/5 ML Susp 30 ML Cup PO PRN (13:24)
[2018-03-09] MEDS: Haloperidol Lactate 2 MG/ML Oral Soln 15 ML Bottle PO PRN (15:15)
[2018-03-09] MEDS: Hyoscyamine 0.125 MG Tab.SL SL PRN ×2 (17:19→20:58)
[2018-03-09] MEDS: Prochlorperazine 10 MG Tab PO PRN (17:20)
[2018-03-09] MEDS: rOPINIRole 1 MG Tab PO SCH (20:58)
[2018-03-09] MEDS: Docusate Sodium 100 MG Cap PO SCH (21:17)
[2018-03-09] MEDS: Acetaminophen/Codeine 300-30 MG Tab PO PRN (22:11)
[2018-03-10] MEDS: Temazepam 15 MG Cap PO PRN (01:39)
[2018-03-10] MEDS: Morphine Oral Concentrate 20 MG/ML 30 ML Bottle PO PRN ×3 (03:19→14:46)
[2018-03-10] MEDS: Haloperidol 1 MG Tab PO SCH ×4 (05:52→22:39)
[2018-03-10] MEDS: Docusate Sodium 100 MG Cap PO SCH ×2 (08:58→20:42)
[2018-03-10] MEDS ORDERED: Lisinopril 10 MG Tab PO SCH (09:00)
[2018-03-10] MEDS: Polyethylene Glycol 3350 Powder 17 GM Packet PO SCH (10:12)
[2018-03-10] MEDS: Lisinopril 10 MG Tab PO SCH (10:12)
[2018-03-10] MEDS: Prochlorperazine 10 MG Tab PO PRN (16:49)
[2018-03-10] MEDS: Hyoscyamine 0.125 MG Tab.SL SL PRN (18:17)
[2018-03-10] MEDS: rOPINIRole 1 MG Tab PO SCH (20:42)
[2018-03-10] MEDS: Acetaminophen/Codeine 300-30 MG Tab PO PRN (22:29)
[2018-03-11] MEDS: Temazepam 15 MG Cap PO PRN (04:49)
[2018-03-11] MEDS: Haloperidol 1 MG Tab PO SCH (06:06)
[2018-03-11] MEDS: Docusate Sodium 100 MG Cap PO SCH (09:44)
[2018-03-11] MEDS: Lisinopril 10 MG Tab PO SCH (09:44)
[2018-03-11 09:45] VITALS: BP 112/62
[2018-03-11] MEDS: Polyethylene Glycol 3350 Powder 17 GM Packet PO SCH (09:45)
== END 2018-03-11 10:00 | disposition hospice, home (50) | DRG 951 ==
LOC: MW.MS 16:13
PROVIDERS: ADMIT Internal Medicine; ATTEND Internal Medicine
DX: Z51.5 Encounter for palliative care (principal); Z66 Do not resuscitate
CPT/HCPCS: A9270-GY; Q0164

== ENCOUNTER 2018-04-08 16:59 | Inpatient (IN) | payer MEDICARE, OTHER ==
[2018-04-08] MEDS ORDERED: IBUPROFEN PO PRN (17:49)
[2018-04-08] MEDS ORDERED: Polyethylene Glycol 3350 Powder 17 GM Packet PO PRN (17:49)
[2018-04-08] MEDS: Morphine Oral Concentrate 20 MG/ML 30 ML Bottle PO PRN ×2 (18:27→22:01)
[2018-04-08] MEDS: Prochlorperazine 10 MG Tab PO PRN (18:30)
[2018-04-08] MEDS: Haloperidol Lactate 2 MG/ML Oral Soln 15 ML Bottle PO SCH (20:13)
[2018-04-08] MEDS: Docusate Sodium 100 MG Cap PO SCH (20:14)
[2018-04-08] MEDS ORDERED: Ibuprofen 200 MG Tab PO PRN (20:29)
[2018-04-08] MEDS: rOPINIRole 1 MG Tab PO SCH (21:53)
[2018-04-08] MEDS: Temazepam 15 MG Cap PO PRN (21:53)
[2018-04-09] MEDS: Haloperidol Lactate 2 MG/ML Oral Soln 15 ML Bottle PO SCH ×4 (01:39→18:08)
[2018-04-09] MEDS: Temazepam 15 MG Cap PO PRN ×2 (02:01→21:32)
[2018-04-09] MEDS: Morphine Oral Concentrate 20 MG/ML 30 ML Bottle PO PRN ×4 (02:16→09:21)
[2018-04-09] MEDS: Docusate Sodium 100 MG Cap PO SCH ×2 (09:20→21:30)
[2018-04-09] MEDS: Lisinopril 10 MG Tab PO SCH (09:21)
[2018-04-09] MEDS: Hyoscyamine 0.125 MG Tab.SL SL PRN ×2 (11:58→18:08)
[2018-04-09] MEDS: Morphine 10 MG/0.5 ML Oral Syringe PO PRN ×3 (14:37→21:32)
[2018-04-09] MEDS: Prochlorperazine 10 MG Tab PO PRN (18:03)
[2018-04-09] MEDS: rOPINIRole 1 MG Tab PO SCH (21:31)
[2018-04-10] MEDS: Haloperidol Lactate 2 MG/ML Oral Soln 15 ML Bottle PO SCH ×4 (00:46→17:16)
[2018-04-10] MEDS: Morphine 10 MG/0.5 ML Oral Syringe PO PRN ×7 (00:46→22:36)
[2018-04-10] MEDS: Temazepam 15 MG Cap PO PRN ×2 (04:22→22:15)
[2018-04-10] MEDS: Lisinopril 10 MG Tab PO SCH (08:39)
[2018-04-10] MEDS: Docusate Sodium 100 MG Cap PO SCH ×2 (08:40→20:45)
[2018-04-10] MEDS: Hyoscyamine 0.125 MG Tab.SL SL PRN ×3 (09:12→18:13)
[2018-04-10] MEDS: Prochlorperazine 10 MG Tab PO PRN (17:15)
[2018-04-10] MEDS: rOPINIRole 1 MG Tab PO SCH (20:45)
[2018-04-11] MEDS: Haloperidol Lactate 2 MG/ML Oral Soln 15 ML Bottle PO SCH ×4 (00:51→17:14)
[2018-04-11] MEDS: Temazepam 15 MG Cap PO PRN ×2 (02:31→21:50)
[2018-04-11] MEDS: Morphine 10 MG/0.5 ML Oral Syringe PO PRN ×6 (02:31→21:55)
[2018-04-11] MEDS: Lisinopril 10 MG Tab PO SCH (08:26)
[2018-04-11] MEDS: Docusate Sodium 100 MG Cap PO SCH ×2 (08:26→21:50)
[2018-04-11] MEDS: Hyoscyamine 0.125 MG Tab.SL SL PRN ×2 (11:49→17:50)
[2018-04-11] MEDS ORDERED: Bisacodyl 5 MG Tab PO PRN (13:32)
[2018-04-11] MEDS: Prochlorperazine 10 MG Tab PO PRN (17:13)
[2018-04-11] MEDS: rOPINIRole 1 MG Tab PO SCH (21:50)
[2018-04-12] MEDS: Haloperidol Lactate 2 MG/ML Oral Soln 15 ML Bottle PO SCH ×6 (00:10→23:06)
[2018-04-12] MEDS: Temazepam 15 MG Cap PO PRN ×2 (01:15→21:36)
[2018-04-12] MEDS: Morphine 10 MG/0.5 ML Oral Syringe PO PRN ×11 (01:18→23:05)
[2018-04-12] MEDS: Lisinopril 10 MG Tab PO SCH (08:27)
[2018-04-12] MEDS: Docusate Sodium 100 MG Cap PO SCH ×2 (09:59→22:27)
[2018-04-12] MEDS: Hyoscyamine 0.125 MG Tab.SL SL PRN ×2 (13:31→18:19)
[2018-04-12] MEDS: Prochlorperazine 10 MG Tab PO PRN (17:02)
[2018-04-12] MEDS: rOPINIRole 1 MG Tab PO SCH (21:36)
[2018-04-13] MEDS: Morphine 10 MG/0.5 ML Oral Syringe PO PRN ×2 (01:46→07:46)
[2018-04-13] MEDS: Temazepam 15 MG Cap PO PRN (01:46)
[2018-04-13] MEDS: Haloperidol Lactate 2 MG/ML Oral Soln 15 ML Bottle PO SCH (08:05)
[2018-04-13] MEDS: Lisinopril 10 MG Tab PO SCH (08:19)
[2018-04-13 08:20] VITALS: BP 138/75
[2018-04-13] MEDS: Docusate Sodium 100 MG Cap PO SCH (08:20)
[2018-04-13] MEDS: Hyoscyamine 0.125 MG Tab.SL SL PRN (09:55)
== END 2018-04-13 10:00 | disposition home or self-care (01) | DRG 951 ==
LOC: MW.MS 16:59 → OBSVTOIN 04-09 06:58
PROVIDERS: ADMIT Family Medicine; ATTEND Family Medicine
DX: Z51.5 Encounter for palliative care (principal)
CPT/HCPCS: A9270-GY; Q0164